=== PATIENT | male | born 1985 | race Caucasian/White ===

== ENCOUNTER 2021-07-22 18:31 | Emergency (ER) | payer OTHER, SELFPAY ==
[2021-07-22 18:45] VITALS: BP 122/91; PULSE 108; RESP 16; TEMP 36.6; O2SAT 98
--- NOTE | 2021-07-22 20:35 | ED.GENADULT ---
HPI - General Adult General Chief complaint: Extremity Injury, Lower Stated complaint: R Calf Pain X 4 days Time Seen by Provider: 07/22/21 20:10 History of Present Illness HPI narrative: Patient is a 36-year-old female presents the emergency department with chief complaint of right calf pain. Patient states for the last couple of days he has had discomfort in his right calf the patient denies trauma denies history of blood clot denies recent surgery or immobilization of the extremity. The patient states that he is concerned that he may have a DVT in his leg reports that is worse whenever he ambulates Related Data Home Medications Medication Instructions Recorded Confirmed No Home Medications 07/22/21 07/22/21 Allergies Allergy/AdvReac Type Severity Reaction Status Date / Time milk AdvReac Diarrhea Verified 07/22/21 18:48 Review of Systems Review of Systems: A 10 system review of systems was completed on the patient and is negative except for what is stated in the HPI. Nursing and ancillary documentation was reviewed. Exam Narrative: GENERAL: Well-appearing, well-nourished, and in no acute distress. HEAD: Normocephalic, atraumatic. EYES: PERRLA and EOMI. ENT: Nares clear, no rhinorrhea or epistaxis. Mucous membranes moist. NECK: Supple. CHEST: Clear to auscultation. No respiratory distress. HEART: Regular rate and rhythm. No murmur heard. Normal peripheral pulses. ABDOMEN: Soft, nontender, nondistended, normal active bowel sounds. EXTREMITIES: Normal range of motion. No edema. There was mild tenderness to palpation in the right calf SKIN: Warm, dry, no rash. NEURO: No focal deficits. Alert and oriented x3. PSYCH: Normal mood and affect. Course Vital Signs Vital signs: Vital Signs Temperature 36.6 C 07/22/21 18:45 Pulse Rate 108 H 07/22/21 18:45 Respiratory Rate 16 07/22/21 18:45 Blood Pressure 122/91 H 07/22/21 18:45 Pulse Oximetry 98 07/22/21 18:45 Temperature 36.6 C 07/22/21 18:45 Pulse Rate 92 07/22/21 21:02 Respiratory Rate 18 07/22/21 21:02 Blood Pressure 121/87 07/22/21 21:02 Pulse Oximetry 98 07/22/21 21:02 Medical Decision Making Vital Signs Vital Signs: Vital Signs Temperature 36.6 C 07/22/21 18:45 Pulse Rate 108 H 07/22/21 18:45 Respiratory Rate 16 07/22/21 18:45 Blood Pressure 122/91 H 07/22/21 18:45 Pulse Oximetry 98 07/22/21 18:45 Temperature 36.6 C 07/22/21 18:45 Pulse Rate 92 07/22/21 21:02 Respiratory Rate 18 07/22/21 21:02 Blood Pressure 121/87 07/22/21 21:02 Pulse Oximetry 98 07/22/21 21:02 Lab Data Result diagrams: 07/22/21 20:38 07/22/21 20:38 Labs: Lab Results 07/22/21 07/22/21 07/22/21 Range/Units 20:38 20:38 20:38 WBC 6.3 (4.5-10.0) K/mm3 RBC 4.93 (4.6-6.20) M/mm3 Hgb 17.1 (14.0-18.0) g/dL Hct 49.6 (42.0-52.0) % MCV 100.6 H (80-100) fl MCH 34.7 H (26-34) pg MCHC 34.5 (32-36) g/dl RDW 15.4 H (11.5-14.5) % Plt Count 119 L (150-375) k/mm3 MPV 11.0 H (7.4-10.4) fl Immature Gran % (Auto) 0.3 (0-0.5) % Neut % (Auto) 52.3 (45.5-73.1) % Lymph % (Auto) 30.8 (18.3-44.2) % [place] % (Auto) 13.6 H (2.6-8.5) % Eos % (Auto) 2.4 (0-4.4) % Baso % (Auto) 0.6 (0.2-1.2) % Lymph # (Auto) 1.95 (0.9-3.2) K/mm3 [place] # (Auto) 0.9 H (0.1-0.6) K/mm3 Eos # (Auto) 0.2 (0-0.3) K/mm3 Baso # (Auto) 0.0 (0.0-0.1) K/mm3 Abs Immat Gran (auto) 0.02 (0.00-0.031) K/mm3 Absolute Neuts (auto) 3.3 (1.3-6.7) K/mm3 Absolute Nucleated RBC 0.0 (0.0-0.012) K/mm3 Nucleated RBC % 0.0 (0.0-0.2) % % Immature Plt Fraction 8.0 (0.9-11.2) % PT 12.1 (11.1-14.7) Seconds INR 0.9 APTT 24.1 (22.3-36.8) SECONDS D-Dimer 2.00 H (<0.48) ug/mL Sodium 137 (137-145) mmol/L Potassium 2.9 L (3.4-5.0) mmol/L Chloride 94 L (98-107) mmol/L Carbon Dioxide 32 H
[2021-07-22 20:48] LABS: Basophils Percent Auto 0.6 % (0.2-1.2); Eosinophils Absolute Auto 0.2 K/mm3 (0-0.3); Eosinophils Percent Auto 2.4 % (0-4.4); Hematocrit 49.6 % (42.0-52.0); Hemoglobin 17.1 g/dL (14.0-18.0); Immature Granulocyte Absolute 0.02 K/mm3 (0.00-0.031); Immature Granulocyte Percent A 0.3 % (0-0.5); Lymphocytes Absolute Auto 1.95 K/mm3 (0.9-3.2); Lymphocytes Percent Auto 30.8 % (18.3-44.2); Mean Corpuscular HGB Conc 34.5 g/dl (32-36); Mean Corpuscular Hemoglobin 34.7 pg (26-34); Mean Corpuscular Volume 100.6 fl (80-100); Monocytes Absolute Auto 0.9 K/mm3 (0.1-0.6); Monocytes Percent Auto 13.6 % (2.6-8.5); Neutrophils Absolute Auto 3.3 K/mm3 (1.3-6.7); Neutrophils Percent Auto 52.3 % (45.5-73.1); Platelet Count Result 119 k/mm3 (150-375); Red Blood Count 4.93 M/mm3 (4.6-6.20); Red Cell Distribution Width 15.4 % (11.5-14.5); White Blood Count 6.3 K/mm3 (4.5-10.0)
[2021-07-22 20:56] LABS: INR 0.9; Prothrombin Time 12.1 Seconds (11.1-14.7)
[2021-07-22 20:57] LABS: Alanine Aminotransferase 83 U/L (4-50); Alkaline Phosphatase 61 U/L (38-126); Anion Gap 11 mmol/L (8-16); Aspartate Amino Transferase 87 U/L (17-59); Bilirubin,Total 0.8 mg/dL (0.2-1.3); Blood Urea Nitrogen 8 mg/dL (9-20); Calcium 8.5 mg/dL (8.4-10.2); Carbon Dioxide 32 mmol/L (22-30); Chloride 94 mmol/L (98-107); Estimated CRCL calculation 133 ml/min; Estimated Glomerular Filt Rate > 60; Glucose 104 mg/dL (65-110); Partial Thromboplastin Time 24.1 SECONDS (22.3-36.8); Potassium 2.9 mmol/L (3.4-5.0); Sodium 137 mmol/L (137-145)
[2021-07-22 21:02] VITALS: BP 121/87; PULSE 92; RESP 18; O2SAT 98
[2021-07-22 21:30] VITALS: BP 121/90; PULSE 101; RESP 18; O2SAT 99
[2021-07-22] MEDS: ENOXAPARIN 80 MG/0.8 ML SYRINGE 65 MG SUB-Q (21:33)
== END 2021-07-22 21:30 | disposition home or self-care (01) ==
PROVIDERS: Emergency Provider Emergency Medicine
DX: M79.661 Pain in right lower leg (principal); R79.1 Abnormal coagulation profile
CPT/HCPCS: 36415; 80053; 85025; 85055; 85380; 85610; 85730; 96372; 99283; J1650

== ENCOUNTER 2021-07-23 07:53 | Outpatient (CLI) | payer OTHER, SELFPAY ==
--- NOTE | ~2021-07-23 | US_ITS ---
EXAMINATION: US venous doppler LE RT DATE: 07/23/2021 08:20 INDICATION: Right lower limb pain and swelling. TECHNIQUE: Grayscale ultrasound images without and with compression and Doppler ultrasound images of the right lower extremity veins were obtained. COMPARISON: None. FINDINGS: The visualized portions of right common femoral vein, profunda (deep) femoral vein, femoral vein, gas trocnemius veins, and greater saphenous vein outflow are patent. There is thrombus in right popliteal , posterior tibial, and peroneal veins. IMPRESSION: 1. Deep vein thrombosis involving right popliteal, posterior tibial, and peroneal veins. Reviewed, dictated and finalized at location A. IMPRESSION: 1. Deep vein thrombosis involving right popliteal, posterior tibial, and peron eal veins.
== END 2021-07-23 07:54 | disposition home or self-care (01) ==
PROVIDERS: PCP Emergency Medicine; Visit Provider Emergency Medicine
DX: I82.451 Acute embolism and thrombosis of right peroneal vein (principal); I82.431 Acute embolism and thrombosis of right popliteal vein; I82.441 Acute embolism and thrombosis of right tibial vein
CPT/HCPCS: 93971

== ENCOUNTER 2021-07-23 08:35 | Emergency (ER) | payer OTHER, SELFPAY ==
[2021-07-23 09:13] VITALS: BP 122/89; PULSE 67; RESP 14; TEMP 36.8; O2SAT 96
[2021-07-23 10:37] LABS: Basophils Absolute Auto 0.1 K/mm3 (0.0-0.1); Basophils Percent Auto 0.7 % (0.2-1.2); Eosinophils Absolute Auto 0.1 K/mm3 (0-0.3); Eosinophils Percent Auto 0.7 % (0-4.4); Hematocrit 49.4 % (42.0-52.0); Hemoglobin 16.9 g/dL (14.0-18.0); Immature Granulocyte Absolute 0.03 K/mm3 (0.00-0.031); Immature Granulocyte Percent A 0.4 % (0-0.5); Immature Platelet Fraction Pct 7.9 % (0.9-11.2); Lymphocytes Absolute Auto 1.23 K/mm3 (0.9-3.2); Mean Corpuscular HGB Conc 34.2 g/dl (32-36); Mean Corpuscular Hemoglobin 34.7 pg (26-34); Mean Corpuscular Volume 101.4 fl (80-100); Mean Platelet Volume 10.4 fl (7.4-10.4); Monocytes Absolute Auto 0.8 K/mm3 (0.1-0.6); Monocytes Percent Auto 11.3 % (2.6-8.5); Neutrophils Absolute Auto 5.1 K/mm3 (1.3-6.7); Neutrophils Percent Auto 69.9 % (45.5-73.1); Platelet Count Result 118 k/mm3 (150-375); Red Blood Count 4.87 M/mm3 (4.6-6.20); Red Cell Distribution Width 15.7 % (11.5-14.5); White Blood Count 7.2 K/mm3 (4.5-10.0)
--- NOTE | 2021-07-23 10:42 | ED.EXTPRO ---
HPI - Extremity Problem General Chief complaint: Extremity Problem,Nontraumatic Stated complaint: R leg DVT Time Seen by Provider: 07/23/21 10:11 Source: patient Mode of arrival: ambulatory Limitations: no limitations History of Present Illness HPI Narrative: This is a 36-year-old male that presents to the emergency department for right calf pain x5 days. No known injury or trauma. No recent travel or surgery. The pain is worse with palpation of the area. He has never had a blood clot before. He was seen in the ER last night for this and sent for an ultrasound this morning which came back positive for DVT. Denies fever, chest pain, shortness of breath. Related Data Allergies Allergy/AdvReac Type Severity Reaction Status Date / Time milk AdvReac Diarrhea Verified 07/23/21 09:18 Review of Systems Review of Systems: CONSTITUTIONAL: Denies fever CARDIOVASCULAR: Reports edema. Denies chest pain RESPIRATORY: Denies dyspnea. SKIN: Denies rash MUSCULOSKELETAL: Reports myalgia. NEUROLOGIC: Denies numbness All systems reviewed & are unremarkable except as noted in HPI and below PMFSH Past Medical History Medical History (Updated 07/23/21 @ 11:53 by Marissa Mohan PA-C) No active medical problems Social History Social History (Updated 07/23/21 @ 10:51 by Marissa Mohan PA-C) Smoking status: Current every day smoker Substance use: never Exam Narrative: GENERAL: Well-appearing, well-nourished, and in no acute distress. HEAD: Normocephalic, atraumatic. EYES: EOMI. CHEST: No respiratory distress. HEART: Regular rate EXTREMITIES: Normal range of motion. Very mild edema to the right calf. Normal DP pulses. Normal sensation SKIN: Warm, dry, no rash. NEURO: No focal deficits. Alert and oriented x3. PSYCH: Normal mood and affect Course Consultations Consultation #1: Spoke with Dr. Cerda about patient and work-up who would like patient to follow-up in clinic on Monday. Agrees with Karen Date: 07/23/21 Time: 11:00 Vital Signs Vital signs: Vital Signs Temperature 98.3 F 07/23/21 09:13 Pulse Rate 67 07/23/21 09:13 Respiratory Rate 14 07/23/21 09:13 Blood Pressure 122/89 07/23/21 09:13 Pulse Oximetry 96 07/23/21 09:13 Temperature 98.3 F 07/23/21 09:13 Pulse Rate 67 07/23/21 09:13 Respiratory Rate 14 07/23/21 09:13 Blood Pressure 122/89 07/23/21 09:13 Pulse Oximetry 96 07/23/21 09:13 MDM - Extremity (Nontraumatic) MDM Narrative Medical decision making narrative: Patient presents to the emergency department for right calf pain noted over the last 5 days. He is afebrile and nontoxic-appearing. He is neurovascularly intact. CBC without concerning findings. Metabolic panel with mild hypokalemia. Patient given a dose of potassium in the ED. He had an outpatient venous Doppler that was positive for DVT in the right popliteal, posterior tibial, peroneal veins. Patient was updated on case findings. Will be started on Xarelto. Spoke with Dr. Cerda about patient and work-up will follow-up in clinic. He denies any chest pain or shortness of breath. Oxygen saturation is remained normal and his heart rate is in the 60s. He is stable and felt appropriate for further outpatient evaluation. He was given warnings to return to the ER Lab Data Attestation: I reviewed the patient's lab results. Result diagrams: 07/23/21 10:26 07/23/21 10:26 Labs: Lab Results 07/23/21 07/23/21 07/23/21 Range/Units 10:26 10:26 10:26 WBC 7.2 (4.5-10.0) K/mm3 RBC 4.87 (4.6-6.20) M/mm3 Hgb 16.9 (14.0-18.0) g/dL Hct 49.4 (42.0-52.0) % MCV 101.4 H (80-100) fl MCH 34.7 H (26-34) pg MCHC 34.2 (32-36) g/dl RDW 15.7 H (11.5-14.5) % Plt Count 118 L (150-375) k/mm3 MPV 10.4 (7.4-10.4) fl Immature Gran % (Auto) 0.4 (0-0.5) % Neut % (Auto) 69.9 (45.5-73.1) % Lymph % (Auto) 17.0 L (18.3-44.2) % [place] % (Auto)
[2021-07-23 10:48] LABS: Prothrombin Time 12.6 Seconds (11.1-14.7)
[2021-07-23 10:49] LABS: Partial Thromboplastin Time 25.4 SECONDS (22.3-36.8)
--- NOTE | 2021-07-23 11:04 | PCCCNOTE ---
Left message for [employer] manager domestic , Crystal Tim regarding preauth for anticoagulant. Will cont to attempt contact
[2021-07-23 11:15] LABS: Anion Gap 8 mmol/L (8-16); Blood Urea Nitrogen 7 mg/dL (9-20); Calcium 8.4 mg/dL (8.4-10.2); Carbon Dioxide 31 mmol/L (22-30); Chloride 98 mmol/L (98-107); Estimated CRCL calculation 130 ml/min; Estimated Glomerular Filt Rate > 60; Glucose 81 mg/dL (65-110); Sodium 137 mmol/L (137-145)
[2021-07-23] MEDS: POTASSIUM CHLORIDE 20 MEQ TABLET 40 MEQ PO (11:47)
--- NOTE | 2021-07-23 12:03 | PCCPR ---
Discount card for Xarelto given to patient
== END 2021-07-23 12:20 | disposition home or self-care (01) ==
PROVIDERS: Physician Assistant; Emergency Provider Emergency Medicine
DX: I82.431 Acute embolism and thrombosis of right popliteal vein (principal); F17.200 Nicotine dependence, unspecified, uncomplicated
CPT/HCPCS: 36415; 80048; 85025; 85055; 85610; 85730; 93971; 99283; A9270